=== PATIENT | male | born 1990 | race Caucasian/White ===

== ENCOUNTER 2018-03-17 22:27 | Emergency (ER) | payer OTHER ==
[2018-03-17] MEDS ORDERED: HYDROmorphone 1 MG/ML Syringe ONE ×2 (23:02→23:47)
[2018-03-17] MEDS ORDERED: Ondansetron 4 MG/2 ML SDV ONE (23:47)
[2018-03-18] MEDS ORDERED: Metoclopramide 10 MG/2 ML SDV ONE (00:54)
[2018-03-18 10:37] LABS: CHLORIDE,CL 100 mmol/L (98-107); SODIUM,NA 138 mmol/L (136-145)
== END 2018-03-18 01:31 | disposition home or self-care (01) ==
LOC: VM.ED 22:27
DX: K52.9 Noninfective gastroenteritis and colitis, unspecified (principal)
CPT/HCPCS: 36415; 74177; 80053; 82150; 83605; 83690; 85025; 96361; 96374; 96375; 99284

== ENCOUNTER 2024-07-30 11:38 | Day surgery (SDC) | payer OTHER ==
[2024-07-30] MEDS: Lactated Ringers 1,000 ML IV SCH (12:08)
[2024-07-30] MEDS ORDERED: Propofol 200 MG/20 ML SDV ONE (12:42)
[2024-07-30] MEDS ORDERED: fentaNYL 100 MCG/2 ML SDV ONE (12:43)
== END 2024-07-30 15:31 | disposition home or self-care (01) ==
LOC: VM.SDS 11:38
PROVIDERS: ATTEND Family Medicine
DX: K20.0 Eosinophilic esophagitis (principal); K21.9 Gastro-esophageal reflux disease without esophagitis; Z79.899 Other long term (current) drug therapy; Z88.0 Allergy status to penicillin
CPT/HCPCS: 00731; J2704; J3010; J7120